=== PATIENT | female | born 1965 | race Caucasian/White ===

== ENCOUNTER 2016-12-11 12:04 | Emergency (ER) | payer OTHER ==
[~2016-12-11] VITALS: Ht 160 cm; Wt 73.8 kg
[2016-12-11] MEDS ORDERED: LEXAPRO20 MG PO (12:16)
[2016-12-11] MEDS ORDERED: ATARAX,VISTARIL25 MG PO (12:41)
[2016-12-11 13:01] VITALS: BP 130/61
== END 2016-12-11 13:03 | disposition home or self-care (01) ==
LOC: EME 12:04
DX: F41.9 Anxiety disorder, unspecified (principal); L29.9 Pruritus, unspecified; T45.1X5A Adverse effect of antineoplastic and immunosuppressive drugs, initial encounter; G35 Multiple sclerosis; F17.200 Nicotine dependence, unspecified, uncomplicated
CPT/HCPCS: 99281; 99284